=== PATIENT | female | born 1940 | race Hispanic/Latino ===

== ENCOUNTER 2019-02-15 18:01 | Emergency (ER) | payer MEDICARE ==
[~2019-02-15] VITALS: Ht 160 cm; Wt 81.6 kg
--- OUTSIDE RECORDS SUMMARY | 2019-02-15 18:03 | XMS REPORT | Clinical Summary ---
Author Author [facility]EL [facility] Address Unknown Phone Unavailable Care Team Providers Care Building Tech Name Role Phone Mario Keyes MD PCP Unavailable Allergies Comments Active Allergy Reactions Severity Noted Date Fluvastatin Rash Low 12/26/2015 Guaifenesin Swelling 12/26/2015 Sob and Hands edema. Levofloxacin 12/26/2015 Body aches Budesonide-Formoterol Other (See 12/26/2015 Comments) Medications End Date Status Medication Sig Dispensed Refills Start Date Active carvedilol (COREG) 12.5 Take 12.5 mg 0 MG tablet by mouth 2 (two) times daily with breakfast and dinner. Active tiotropium (SPIRIVA) 18 Inhale 18 mcg 0 mcg inhalation capsule by mouth via inhaler daily. Active atorvastatin (LIPITOR) 20 Take 20 mg by 0 MG tablet mouth daily. Active loratadine (CLARITIN) 10 Take 10 mg by 0 mg tablet mouth daily. Active naproxen Take 220 mg 0 (ALEVE,ANAPROX,MIDOL) 220 by mouth 2 MG tablet (two) times daily with breakfast and dinner. Active aspirin 81 MG EC tablet Take 81 mg by 0 mouth daily. Active cholecalciferol, vitamin Take 1,000 0 D3, 1,000 unit capsule Units by mouth daily. Active fluticasone-salmeterol Inhale 1 puff 0 (ADVAIR) 100-50 mcg/dose by mouth via diskus inhaler inhaler every 12 (twelve) hours. Active furosemide (LASIX) 20 MG Take 20 mg by 0 tablet mouth 2 (two) times daily. Active amLODIPine (NORVASC) 5 MG Take 5 mg by 0 tablet mouth daily. 01/21/2020 Active naproxen (NAPROSYN) 375 Take 1 tablet 20 tablet 0 08/12/201 MG tablet (375 mg 9 total) by mouth 2 (two) times daily with breakfast and dinner. 01/31/2019 methocarbamol (ROBAXIN) Take 1 tablet 20 tablet 0 500 MG tablet (500 mg 9 total) by mouth 2 (two) times daily for 10 days. 01/31/2019 traMADol (ULTRAM) 50 mg Take 1 tablet 20 tablet 0 tablet (50 mg total) 9 by mouth every 6 (six) hours as needed for up to 10 days. Max Daily Amount: 200 mg Active Problems Not on file Encounters Care Team Description Date Type Specialty Alcides Cohn MD Strain of lumbar region, initial encounter (Primary Dx); Acute midline back pain, unspecified back location; Hypertension, unspecified type; Other osteoarthritis of spine, lumbar region 01/21/2019 Emergency Emergency Medicine after 02/14/2018 Social History Date Tobacco Use Types Packs/Day Years Used Never Smoker Smokeless Tobacco: Never Used Alcohol Use Drinks/Week oz/Week Comments No Sex Assigned at Date Recorded Not on file Industry Job Start Date Occupation Not on file Not on file Not on file Travel End Travel History Travel Start No recent travel history available. Last Filed Vital Signs Time Taken Vital Sign Reading 01/21/2019 8:10 PM CDT Blood Pressure 174/69 01/21/2019 8:10 PM CDT Pulse 59 01/21/2019 8:10 PM CDT Temperature 36.7 C (98.1 F) 01/21/2019 8:10 PM CDT Respiratory Rate 18 01/21/2019 8:10 PM CDT Oxygen Saturation 95% - Inhaled Oxygen - Concentration 01/21/2019 8:10 PM CDT Weight 85 kg (187 lb 4.8 oz) 01/21/2019 8:10 PM CDT Height 152.4 cm (5') 01/21/2019 8:10 PM CDT Body Mass Index 36.58 Plan of Treatment Not on file Procedures Comments Procedure Name Priority Date/Time Associated Diagnosis XR SPINE LUMBAR COMPLETE STAT 01/21/2019 MIN 4 VIEWS 8:47 PM CDT after 02/14/2018 Results * XR spine lumbar complete 4 views min (01/21/2019 8:47 PM CDT) Specimen Narrative Performed At FINAL REPORT [facility] EXAMINATION: Lumbar spine series, 5 views Clinical Indication:Back pain Impression: On the AP view, there is a gentle vrfh-zh-aedbq scoliotic curve of the spine. On the lateral view, there is preservation of normal lumbar lordosis. Bones demonstrate demineralization compatible with senescent osteopenia. Diffuse degenerative changes are noted throughout the lumbar spine, most pronounced at L2-L3 with loss of disc space height, subchondral sclerosis, osteophytosis and facet hypertrophy. A compression fracture is noted at T12 with approximately 30% loss of anterior vertebral body height, chronicity indeterminate but possibly acute in the appropriate clinical setting. A cluster of calcifications project over the right upper abdomen suggesting gallstones. Note: Consider cross-sectional imaging for further evaluation if clinically warranted. Signed: Navarro Gu MD Report Verified Date/Time:01/21/2019 21:34:50 Reading Location: [address] Reading Room Procedure Note Interface, External Ris In - 01/21/2019 9:37 PM CDT FINAL REPORT EXAMINATION: Lumbar spine series, 5 views Clinical Indication: Back pain Impression: On the AP view, there is a gentle surt-[id number] scoliotic curve of the spine. On the lateral view, there is preservation of normal lumbar lordosis. Bones demonstrate demineralization compatible with senescent osteopenia. Diffuse degenerative changes are noted throughout the lumbar spine, most pronounced at L2-L3 with loss of disc space height, subchondral sclerosis, osteophytosis and facet hypertrophy. A compression fracture is noted at T12 with approximately 30% loss of anterior vertebral body height, chronicity indeterminate but possibly acute in the appropriate clinical setting. A cluster of calcifications project over the right upper abdomen suggesting gallstones. Note: Consider cross-sectional imaging for further evaluation if clinically warranted. Signed: Navarro Gu MD Report Verified Date/Time: 01/21/2019 21:34:50 Reading Location: [address] Reading Room Performing Organization Address City/State/Zipcode Phone Number [facility] after 02/14/2018 Insurance Payer Benefit Subscriber ID Type Phone Address Plan / Group [employer] [facility]
--- OUTSIDE RECORDS SUMMARY | 2019-02-15 18:03 | XMS REPORT ---
Author Author [facility] Address Unknown Phone Unavailable Care Team Providers Care Farm Equipment Engineer Name Role Phone Unavailable Unavailable Problems This patient has no known problems. Allergies, Adverse Reactions, Alerts This patient has no known allergies or adverse reactions. Medications This patient has no known medications. Results Test Description Test Time Test Comments Text Results Atomic Results Result Comments RAD, SPINE, LUMBAR, COMPLETE (MIN 4 VIEWS) 2019-01-21 21:34:00 Reason for exam:- >BACK PAINShould this be performed at the bedside?->No FINAL REPORT EXAMINATION: Lumbar spine series, 5 views Clinical Indication: Back pain Impression: On the AP view, there is a gentle emuy-ap-mxfur scoliotic curve of the spine. On the [...] evaluation if clinically warranted. Signed: Navarro Gu Verified Date/Time: 01/21/2019 21:34:50 Reading Location: [address] Reading Room
[2019-02-15] MEDS ORDERED: CEFTRIAXONE SOD 1 GM VIAL IV ONE (18:30)
[2019-02-15] MEDS ORDERED: CEFTRIAXONE SOD 1 GM VIAL ONE (18:39)
[2019-02-15] MEDS ORDERED: SODIUM CHLORIDE 0.9% 250ML 250 ML ONE (18:40)
[2019-02-15] MEDS ORDERED: CEFTRIAXONE SOD 1 GM/NS 50 ML 50 ML IV ONE (18:45)
--- NOTE | 2019-02-15 19:36 | Diagnostic Imaging Report ---
EXAMINATION: Head CT without contrast. HISTORY:Head pressure, feels shaky. COMPARISON:None. TECHNIQUE: Multidetector axial images were obtained from the foramen magnum to the vertex without contrast. The images were reconstructed using brain and bone algorithms. Thin section brain images were reformatted into coronal and sagittal planes. Dose modulation, iterative reconstruction, and/or weight based adjustment of the mA/kV was utilized to reduce the radiation dose to as low as reasonably achievable. Intravenous contrast: None IMAGE QUALITY: Acceptable. FINDINGS: Skull/scalp: No lytic or blastic. lesions. No surgical changes. Parenchyma: Nonspecific few, scattered supratentorial white matter hypodensity are likely related to small vessel ischemic changes. No acute hemorrhage, mass or acute major vascular territorial infarct. Arteries: No density suggestive of thrombosis. Dural sinuses: No abnormal density suggestive of thrombosis. Ventricles: No hydrocephalus or displacement. Extra-axial spaces: No abnormal density. Brain volume: Normal for age. Craniocervical junction: No mass, Chiari malformation, or basilar invagination. Sella: No mass. Paranasal/mastoid sinuses: Imaged portions unremarkable. IMPRESSION: No acute intracranial abnormality. Signed by: Dr. Suellen Griffiths M.D. on 02/15/2019 7:32 PM
== END 2019-02-15 19:56 | disposition home or self-care (01) ==
LOC: FSED 18:01
DX: R51 Headache (principal); N30.00 Acute cystitis without hematuria; I10 Essential (primary) hypertension; E78.5 Hyperlipidemia, unspecified; J45.909 Unspecified asthma, uncomplicated; F32.9 Major depressive disorder, single episode, unspecified
CPT/HCPCS: 70450; 80053; 81003; 82553; 84484; 85025; 99284; J0696; J7050

== ENCOUNTER 2021-08-17 04:11 | Emergency (ER) | payer MEDICARE ==
[~2021-08-17] VITALS: Ht 160 cm; Wt 74.8 kg
[2021-08-17] MEDS ORDERED: METHOCARBAMOL750 MG PO (05:20)
[2021-08-17] MEDS ORDERED: REGLAN5 MG PO (05:20)
[2021-08-17] MEDS ORDERED: KETOROLAC TROMETHAMINE 30 MG/ML VIAL ONE (05:44)
[2021-08-17] MEDS ORDERED: KETOROLAC TROMETHAMINE 60 MG/2 ML VIAL IM ONE (05:45)
== END 2021-08-17 06:00 | disposition home or self-care (01) ==
LOC: FSED 04:26
DX: R51.9 Headache, unspecified (principal); M54.41 Lumbago with sciatica, right side; I10 Essential (primary) hypertension; E78.5 Hyperlipidemia, unspecified; J45.909 Unspecified asthma, uncomplicated; G89.29 Other chronic pain
CPT/HCPCS: 70450; 99283; J1885